=== PATIENT | female | born 1955 | race Caucasian/White ===

== ENCOUNTER 2025-09-10 22:34 | Emergency (ER) | payer OTHER ==
[~2025-09-10] VITALS: Ht 165.1 cm; Wt 70.3 kg
[2025-09-10] MEDS ORDERED: Voltaren100 GM TOP (23:11)
[2025-09-10] MEDS ORDERED: Robaxin750 MG PO (23:11)
== END 2025-09-10 23:34 | disposition home or self-care (01) ==
LOC: ER 22:34
DX: M54.2 Cervicalgia (principal)
CPT/HCPCS: 99283; A9270